=== PATIENT | female | born 1990 | race Caucasian/White ===

== ENCOUNTER 2023-10-31 15:27 | Emergency (ER) | payer MEDICAID ==
[~2023-10-31] VITALS: Ht 162.6 cm; Wt 86.2 kg
[2023-10-31 15:38] VITALS: BP_SYST 133; PULSE 89; RESP 19; TEMP 98.1; O2SAT 100
[2023-10-31] MEDS: KETOROLAC TROMETHAMINE 60 MG/2 ML VIAL IM ONE (16:02)
[2023-10-31] MEDS: ONDANSETRON 4 MG ODT TAB PO ONE (16:02)
[2023-10-31 16:07] LABS: BASOPHILS % (AUTO) 0.2 % (0.0-2.0); EOSINOPHILS # (AUTO) 0.1 K/uL (0.0-0.4); EOSINOPHILS % (AUTO) 0.5 % (0.0-4.0); HEMOGLOBIN 12.6 g/dL (12.0-16.0); LYMPHOCYTES # (AUTO) 2.3 K/uL (1.0-5.5); MEAN CORPUSCULAR HEMOGLOBIN 32 pg (27-31); MEAN CORPUSCULAR HGB CONC 34 % (32-36); MEAN CORPUSCULAR VOLUME 94 fL (79.0-98.0); MONOCYTES # (AUTO) 0.7 K/uL (0.0-1.0); MONOCYTES % (AUTO) 6.4 % (1.7-9.3); NEUTROPHILS # (AUTO) 8.3 K/uL (1.8-7.7); NEUTROPHILS % (AUTO) 72.9 % (40.0-70.0); PLATELET COUNT (AUTO) 209 K/uL (130-430); RED BLOOD CELL COUNT(AUTO) 3.94 MIL/uL (4.2-6.2); RED CELL DISTRIBUTION WIDTH 13.8 % (9.0-15.0); WHITE BLOOD COUNT (AUTO) 11.3 K/uL (4.8-10.8)
[2023-10-31 16:21] LABS: BILIRUBIN,URINE NEGATIVE (NEGATIVE); BLOOD, URINE 3+ (NEGATIVE); CLARITY/URINE SL CLOUDY (CLEAR); COLOR,URINE YELLOW (YELLOW); GLUCOSE,URINE NEGATIVE (NEGATIVE); KETONES,URINE NEGATIVE (NEGATIVE); LEUKOCYTE ESTERASE ,URINE 3+ (NEGATIVE); NITRITE, URINE NEGATIVE (NEGATIVE); PH,URINE 6.5 (5.0-8.0); PROTEIN URINE 2+ (NEGATIVE)
[2023-10-31 16:24] LABS: ALBUMIN 3.5 g/dL (3.4-4.8); BILIRUBIN,DIRECT 0.2 mg/dL (0.0-0.3); CALCIUM 8.4 mg/dL (8.4-11.0); CREATININE 0.85 mg/dL (0.55-1.30); POTASSIUM 3.3 mmol/L (3.5-5.1); TOTAL BILIRUBIN 0.7 mg/dL (0.0-1.0); TOTAL PROTEIN, SERUM 7.4 g/dL (6.4-8.3)
[2023-10-31 16:46] LABS: UROBILINOGEN,URINE >=8 (0.2-1.0)
[2023-10-31 16:48] LABS: BACTERIA,URINE FEW /HPF (None Seen); MUCUS,URINE None Seen /LPF (None Seen); RBC,URINE 20-50 /HPF (0-3); WBC,URINE >100 /HPF (0-3)
[2023-10-31] MEDS ORDERED: CEPH-548 PO (17:27)
[2023-10-31] MEDS ORDERED: IBUP-1971 PO (17:27)
[2023-10-31] MEDS ORDERED: ONDA-8 TL (17:27)
[2023-10-31] MEDS: cefTRIAXone 1 GM VIAL IM ONE (17:53)
[2023-10-31 18:00] VITALS: BP_SYST 133; PULSE 89; RESP 19; TEMP 98.1; O2SAT 100
== END 2023-10-31 18:01 | disposition home or self-care (01) ==
LOC: SED 15:27
DX: N12 Tubulo-interstitial nephritis, not specified as acute or chronic (principal); R10.11 Right upper quadrant pain; R11.10 Vomiting, unspecified; Z79.899 Other long term (current) drug therapy; Z79.2 Long term (current) use of antibiotics
CPT/HCPCS: 99285; 76700; 80076; 80048; 81001; 83690; 85025; 87086; 36415; 81025; 96372; Q0162; J0696; J1885; 81000; 81015

== ENCOUNTER 2024-01-09 18:25 | Emergency (ER) | payer MEDICAID ==
[~2024-01-09] VITALS: Ht 162.6 cm; Wt 86.2 kg
[~2024-01-09 18:25] MED LIST: CEPH-548 PO; IBUP-1971 PO; ONDA-8 TL
[2024-01-09 19:05] VITALS: BP_SYST 133; PULSE 58; RESP 18; TEMP 97.5; O2SAT 99
[2024-01-09 20:05] VITALS: BP_SYST 133; PULSE 58; RESP 18; TEMP 97.5; O2SAT 99
== END 2024-01-09 20:06 | disposition home or self-care (01) ==
LOC: SED 18:25
DX: R09.A9 Foreign body sensation, other site (principal); Z88.8 Allergy status to other drugs, medicaments and biological substances; Z79.899 Other long term (current) drug therapy; Z79.2 Long term (current) use of antibiotics
CPT/HCPCS: 99281